=== PATIENT | male | born 1960 | race African-American/Black ===

== ENCOUNTER 2019-01-06 11:08 | Outpatient (CLI) | payer MEDICARE ==
--- NOTE | 2019-01-06 12:01 | ULT ---
Exam: Vein mapping for dialysis access HISTORY: End-stage renal disease. TECHNIQUE: Multiplanar grayscale and color Doppler images were obtained in a bilateral upper extremit y venous ultrasound. Spectral analysis of the Doppler waveforms of the vessels were performed. FINDINGS: The bilateral internal jugular veins and subclavian veins are patent without evidence of th rombus. Right brachial artery 4.4 mm Right radial artery 2.3 mm Right ulnar artery 1.2 mm Left brachial artery 4.8 mm Left radial artery 1.3 mm Left ulnar artery 1.8 mm RIGHT CEPHALIC VEIN in millimeters 1.8 -- Shoulder 2.7 -- Upper arm 2.5 -- Mid upper arm 1.6-- Just proximal to the elbow 3.0 -- Just distal to the elbow 1.7 -- Forearm 1.8 -- Wrist RIGHT BASILIC VEIN in millimeters 7.9 -- Shoulder 5.5 -- Upper arm 5.5 -- Mid upper arm 4.6 -- Just proximal to the elbow 1.1 -- Just distal to the elbow 0.8 -- Forearm 0.8 -- Wrist LEFT CEPHALIC VEIN in millimeters 1.6 -- Shoulder 1.7 -- Upper arm 1.8 -- Mid upper arm 2.1 -- Just proximal to the elbow 1.1 -- Just distal to the elbow 1.1 -- Forearm 2.6 -- Wrist LEFT BASILIC VEIN in millimeters 3.7 -- Shoulder 2.5 -- Upper arm 2.1 -- Mid upper arm 1.3 -- Just proximal to the elbow 1.0 -- Just distal to the elbow 1.1 -- Forearm 0.8 -- Wrist IMPRESSION: Vein mapping for dialysis access as above
== END 2019-01-06 11:09 | disposition home or self-care (01) ==
LOC: ULT 11:08
PROVIDERS: ATTEND Internal Medicine
DX: Z01.818 Encounter for other preprocedural examination (principal); N18.6 End stage renal disease
CPT/HCPCS: 93970; G0365